=== PATIENT | male | born 1965 | race Caucasian/White ===

== ENCOUNTER 2016-11-12 20:52 | Inpatient (IN) | payer SELFPAY ==
[~2016-11-12] VITALS: Ht 177.8 cm; Wt 69.5 kg
[2016-11-12] VITALS (10 sets, daily range): BP systolic 87–102; BP diastolic 56–69; PULSE 59–77; RESP 14–24; TEMP 94–96; O2SAT 94–100
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
[2016-11-12 21:29] LABS: BLOOD GAS BASE EXCESS -4.5 mmol/L (-2-2); BLOOD GAS CARBOXYHEMOGLOBIN 6.6 % (0-4); BLOOD GAS HCO3 21 mmol/L (22-26); BLOOD GAS METHEMOGLOBIN 0.7 % (0-2); BLOOD GAS O2 HGB SATURATION 93 % (90-100); BLOOD GAS OXYGEN CONTENT 19.5 Vol % (12.0-20.0); BLOOD GAS PCO2 46 mmHg (38-42); BLOOD GAS PO2 544 mmHG (61-120); BLOOD GAS TOTAL HGB 13.9 G/DL (12.0-16.0); TEMP CORR TO 98.6
[2016-11-12 21:30] LABS: CRITICAL VALUE YES; OXYGEN DEVICE VENTILATOR
[2016-11-12 21:31] LABS: DRAW SITE RT FEMORAL; FIO2 100 %; NUMBER OF ARTERIAL PUNCTURES 1; STAT YES
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
[2016-11-12] MEDS ORDERED: SODIUM CHLOR 0.9% 1000 ML INJ 1,000 ML IV ONE ×3 (21:45→22:15)
[2016-11-12 21:47] LABS: AUTOMATED NEUTROPHIL # 4.9 TH/MM3 (1.8-7.7); BASOPHIL # 0.1 TH/MM3 (0-0.2); BASOPHIL % 0.8 % (0.0-2.0); EOSINOPHIL # 0.3 TH/MM3 (0-0.4); EOSINOPHIL % 3.1 % (0.0-4.0); HEMATOCRIT 42.1 % (39.0-51.0); HEMO FLAGS DIFF FINAL; LYMPH % 40.4 % (9.0-44.0); LYMPHOCYTE # 3.8 TH/MM3 (1.0-4.8); MEAN CORPUSCULAR HEMOGLOBIN 32.4 PG (27.0-34.0); MEAN CORPUSCULAR HGB CONC 32.8 % (32.0-36.0); MONO % 3.8 % (0.0-8.0); NEUT % 51.9 % (16.0-70.0); PLATELET COUNT 305 TH/MM3 (150-450); RED BLOOD COUNT 4.25 MIL/MM3 (4.50-5.90); RED CELL DISTRIBUTION WIDTH 13.6 % (11.6-17.2); WHITE BLOOD COUNT 9.4 TH/MM3 (4.0-11.0)
[2016-11-12 21:51] LABS: BLOOD, URINE TRACE (NEG); COMMENT (UR) CULT NOT INDICATED; CULTURE IF INDICATED CULT NOT INDICATED; GLUCOSE,URINE 1000 mg/dL (NEG); HYALINE CAST, URINE 4 /lpf (RARE); KETONE, URINE NEG (NEG); MUCUS URINE FEW /lpf (OCC); NITRITE,URINE NEG (NEG); PH, URINE 5.5 (5.0-8.5); SQUAMOUS EPITHELIAL CELL URINE 1 /hpf (0-5); URINE COLOR YELLOW (YELLW/STRAW)
[2016-11-12 22:02] LABS: AMPHETAMINE, URINE NEG (NEG); BARBITURATES, URINE NEG (NEG); COCAINE, URINE NEG (NEG)
[2016-11-12 22:12] LABS: ALT (GPT) 44 U/L (12-78)
[2016-11-12] MEDS ORDERED: NOREPINEPHRINE-DEXTROSE DRIP 250 ML IV SCH (22:15)
[2016-11-12 22:17] LABS: ACETAMINOPHEN LESS THAN 2.0 MCG/ML (10.0-30.0); ALKALINE PHOSPHATASE 80 U/L (45-117); ANION GAP 15 MEQ/L (5-15); AST (GOT) 103 U/L (15-37); BICARBONATE 18.9 MEQ/L (21.0-32.0); BLOOD UREA NITROGEN 16 MG/DL (7-18); CHLORIDE 101 MEQ/L (98-107); CREATINE KINASE 129 U/L (39-308); GLOMERULAR FILTRATION RATE 47 ML/MIN (>89); SODIUM (NA) 135 MEQ/L (136-145); TOTAL BILIRUBIN ADULT 0.3 MG/DL (0.2-1.0)
[2016-11-12 22:30] LABS: CKMB 0.9 NG/ML (0.5-3.6)
[2016-11-12] MEDS ORDERED: SODIUM CHLOR 0.9% 1000 ML INJ 1,000 ML IV SCH (22:44)
[2016-11-12] MEDS ORDERED: ONDANSETRON HCL 4 MG/2 ML VIAL IV PRN (22:45)
[2016-11-12] MEDS ORDERED: POTASSIUM PHOSPHATE MONOBASIC 500 MG TAB PO/TUBE PRN (22:45)
[2016-11-12] MEDS ORDERED: MAGNESIUM OXIDE 400 MG TAB PO PRN (22:45)
[2016-11-12] MEDS ORDERED: MAGNESIUM SULFATE INJ 2 GM in SODIUM CHLORIDE 0.9% INJ 96 ML IV PRN (22:45)
[2016-11-12] MEDS ORDERED: MAGNESIUM HYDROXIDE SUSP 30 ML CUP PO PRN (22:45)
[2016-11-12] MEDS ORDERED: POTASSIUM CHLOR 20 MEQ PREMIX 100 ML IV PRN ×2 (22:45)
[2016-11-12] MEDS ORDERED: POTASSIUM PHOSPHATE INJ 30 MMOL in SODIUM CHLOR 0.9% 250 ML INJ 250 ML IV PRN (22:45)
[2016-11-12] MEDS ORDERED: LACTULOSE SYRUP 20 GM/30 ML CUP PO PRN (22:45)
[2016-11-12] MEDS ORDERED: POTASSIUM CHLOR 40 MEQ PREMIX 100 ML IV PRN ×2 (22:45)
[2016-11-12] MEDS ORDERED: BISACODYL 10 MG SUPP RECTAL PRN (22:45)
[2016-11-12] MEDS ORDERED: RESP: ALBUTEROL 2.5 MG/IPRATROPIUM 0.5 MG NEB (PRN) INH (22:45)
[2016-11-12] MEDS ORDERED: MORPHINE SULFATE 4 MG/ML INJ IV PRN (22:45)
[2016-11-12] MEDS ORDERED: MISCELLANEOUS NURSING INFORMATION XX SCH (22:45)
[2016-11-12] MEDS ORDERED: SENNOSIDES 8.6 MG TAB PO PRN (22:45)
[2016-11-12] MEDS ORDERED: SODIUM PHOSPHATE INJ 30 MMOL in SODIUM CHLOR 0.9% 250 ML INJ 240 ML IV PRN (22:45)
[2016-11-12] MEDS ORDERED: CHLORHEXIDINE GLUCONATE 2 % 1 PACK (2 CLOTHS) TOP PRN (22:45)
[2016-11-12] MEDS ORDERED: ACETAMINOPHEN 325 MG TAB PO PRN (22:45)
[2016-11-12] MEDS ORDERED: POTASSIUM CHLORIDE 25 MEQ EFFERVESCENT TAB PO PRN (22:45)
[2016-11-12] MEDS ORDERED: MAGNESIUM SULFATE INJ 4 GM in SODIUM CHLORIDE 0.9% INJ 92 ML IV PRN (22:45)
[2016-11-12] MEDS ORDERED: POTASSIUM PHOSPHATE MONOBASIC 500 MG TAB PO PRN (22:45)
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
[2016-11-12] MEDS: PROPOFOL 1000 MG/100 ML INJ 100 ML IV SCH (23:27)
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
[2016-11-13] VITALS (19 sets, daily range): BP systolic 92–126; BP diastolic 52–74; PULSE 16–89; RESP 16–24; TEMP 98.2–99; O2SAT 92–100
[2016-11-13 00:11] LABS: MAGNESIUM 2.2 MG/DL (1.5-2.5)
[2016-11-13 00:36] LABS: APTT (PATIENT) 26.2 SEC (24.3-30.1); PROTHROMBIN TIME - PATIENT 10.5 SEC (9.8-11.6)
[2016-11-13] MEDS ORDERED: NOREPINEPHRINE-DEXTROSE DRIP 250 ML IV SCH (00:45)
[2016-11-13] MEDS ORDERED: TERBUTALINE INJ 1 MG/ML AMP SQ PRN (00:45)
[2016-11-13] MEDS ORDERED: fentaNYL DRIP 250 ML IV SCH (01:00)
[2016-11-13 03:33] LABS: BLOOD GAS BASE EXCESS -5.3 mmol/L (-2-2); BLOOD GAS HCO3 19 mmol/L (22-26); BLOOD GAS METHEMOGLOBIN 1.1 % (0-2); BLOOD GAS O2 HGB SATURATION 96 % (90-100); BLOOD GAS OXYGEN CONTENT 16.2 Vol % (12.0-20.0); BLOOD GAS PCO2 34 mmHg (38-42); BLOOD GAS PO2 199 mmHg (61-120); BLOOD GAS TOTAL HGB 11.8 G/DL (12.0-16.0); CRITICAL VALUE NO; DRAW SITE ART LINE; FIO2 50 %; OXYGEN DEVICE VENTILATOR; TEMP CORR TO 98.6; VENT SETTINGS PRVC/AC
[2016-11-13 03:34] LABS: STAT NO
[2016-11-13] MEDS: PROPOFOL 1000 MG/100 ML INJ 100 ML IV SCH (03:44)
[2016-11-13] MEDS: ENOXAPARIN SODIUM 40 MG/0.4 ML SYRINGE SQ SCH ×2 (03:51→23:13)
[2016-11-13 03:54] LABS: AUTOMATED NEUTROPHIL # 10.8 TH/MM3 (1.8-7.7); BASOPHIL # 0.1 TH/MM3 (0-0.2); BASOPHIL % 0.4 % (0.0-2.0); EOSINOPHIL # 0.2 TH/MM3 (0-0.4); EOSINOPHIL % 1.4 % (0.0-4.0); HEMATOCRIT 36.7 % (39.0-51.0); HEMO FLAGS DIFF FINAL; LYMPH % 20.3 % (9.0-44.0); MEAN CELL VOLUME 96.5 FL (80.0-100.0); MEAN CORPUSCULAR HEMOGLOBIN 31.7 PG (27.0-34.0); MEAN CORPUSCULAR HGB CONC 32.9 % (32.0-36.0); NEUT % 73.9 % (16.0-70.0); PLATELET COUNT 285 TH/MM3 (150-450); RED CELL DISTRIBUTION WIDTH 13.4 % (11.6-17.2); WHITE BLOOD COUNT 14.6 TH/MM3 (4.0-11.0)
[2016-11-13] MEDS: CHLORHEXIDINE GLUCONATE 2 % 1 PACK (2 CLOTHS) TOP SCH (04:00)
[2016-11-13 05:04] LABS: BLOOD GAS BASE EXCESS -5.1 mmol/L (-2-2); BLOOD GAS CARBOXYHEMOGLOBIN 1.8 % (0-4); BLOOD GAS HCO3 20 mmol/L (22-26); BLOOD GAS METHEMOGLOBIN 1.1 % (0-2); BLOOD GAS O2 HGB SATURATION 96 % (90-100); BLOOD GAS OXYGEN CONTENT 16.7 Vol % (12.0-20.0); BLOOD GAS PCO2 37 mmHg (38-42); BLOOD GAS PO2 160 mmHg (61-120); BLOOD GAS TOTAL HGB 12.1 G/DL (12.0-16.0); CRITICAL VALUE NO; OXYGEN DEVICE VENTILATOR; TEMP CORR TO 98.6
[2016-11-13 05:05] LABS: DRAW SITE ART LINE; FIO2 40 %; STAT NO; VENT SETTINGS PRVC/AC
[2016-11-13 05:25] LABS: BICARBONATE 22.3 MEQ/L (21.0-32.0); CALCIUM-PROTEIN CORRECTED 8.1 MG/DL (8.5-10.1); MAGNESIUM 1.7 MG/DL (1.5-2.5); TOTAL BILIRUBIN ADULT 0.5 MG/DL (0.2-1.0)
--- NOTE | 2016-11-13 05:37 | RADRPT ---
EXAM DATE/TIME: 11/13/2016 04:28 [facility] COMPARISON: CHEST SINGLE AP, November 12, 2016, 20:57. INDICATIONS : Shortness of breath, possible pulmonary disease. MEDICAL HISTORY : None. SURGICAL HISTORY : None. ENCOUNTER: Subsequent ACUITY: 2 days PAIN SCORE: Non-responsive. LOCATION: Bilateral chest FINDINGS: A single view of the chest demonstrates the lungs to be symmetrically aerated without evidence of mas s, infiltrate or effusion. The cardiomediastinal contours are unremarkable. Endotracheal tube uncha nged. Osseous structures are intact. CONCLUSION: No acute disease. Fady Griffin MD on November 13, 2016 at 5:35 Board Certified Radiologist. This report was verified electronically.
--- NOTE | 2016-11-13 05:51 | PD.PROCEDR ---
Procedure Note Procedure Note for 11/12/16: DX: Cardiac Arrest OP: Insertion Right Radial Arterial Line ([id number]) Procedure: Ruben test normal right hand. Right wrist supinated, prepped and draped. Right radial artery cannulated with 20 gauge needle and cannula advanced over needle to 3.5 cm. Good waveform observed. Dressing applied. Circulation to right hand intact after the procedure. Lee Ace MD Nov 13, 2016 05:51
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
[2016-11-13] MEDS: CHLORHEXIDINE 0.12% (ORAL KIT) 15 ML CUP MT SCH ×2 (08:00→23:13)
[2016-11-13] MEDS: DOCUSATE SODIUM 50 MG/SENNA 8.6 MG TAB PO SCH ×2 (09:00→23:13)
[2016-11-13] MEDS: PANTOPRAZOLE SODIUM 40 MG VIAL IV SCH (10:28)
--- NOTE | 2016-11-13 13:42 | EKG ---
Date Performed: 11/12/2016 Time Performed: 21:06:33 PTAGE: 89 years EKG: SINUS BRADYCARDIA MARKED LEFT AXIS DEVIATION PROLONGED QT INTERVAL ABNORMAL ECG NO PREVIOUS TRACING DOCTOR: Jhon Giraldo Interpretating Date/Time 11/13/2016 13:41:13
[2016-11-14] VITALS (18 sets, daily range): BP systolic 112–153; BP diastolic 63–79; PULSE 56–84; RESP 16–20; TEMP 98–99; O2SAT 94–98
[2016-11-14] MEDS: CHLORHEXIDINE GLUCONATE 2 % 1 PACK (2 CLOTHS) TOP SCH (04:00)
[2016-11-14] MEDS: PANTOPRAZOLE SODIUM 40 MG VIAL IV SCH (07:33)
[2016-11-14] MEDS: CHLORHEXIDINE 0.12% (ORAL KIT) 15 ML CUP MT SCH ×2 (08:00→21:31)
[2016-11-14] MEDS: DOCUSATE SODIUM 50 MG/SENNA 8.6 MG TAB PO SCH ×2 (09:00→21:00)
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
[2016-11-14 11:39] LABS: AUTOMATED NEUTROPHIL # 8.2 TH/MM3 (1.8-7.7); BASOPHIL % 0.4 % (0.0-2.0); EOSINOPHIL # 0.1 TH/MM3 (0-0.4); HEMATOCRIT 39.2 % (39.0-51.0); HEMO FLAGS DIFF FINAL; LYMPH % 19.5 % (9.0-44.0); LYMPHOCYTE # 2.2 TH/MM3 (1.0-4.8); MEAN CELL VOLUME 95.5 FL (80.0-100.0); MEAN CORPUSCULAR HEMOGLOBIN 31.7 PG (27.0-34.0); MEAN CORPUSCULAR HGB CONC 33.2 % (32.0-36.0); MONO % 5.4 % (0.0-8.0); NEUT % 73.7 % (16.0-70.0); PLATELET COUNT 232 TH/MM3 (150-450); RED BLOOD COUNT 4.11 MIL/MM3 (4.50-5.90); RED CELL DISTRIBUTION WIDTH 13.4 % (11.6-17.2); WHITE BLOOD COUNT 11.1 TH/MM3 (4.0-11.0)
[2016-11-14 12:04] LABS: ALKALINE PHOSPHATASE 56 U/L (45-117); ALT (GPT) 26 U/L (12-78); ANION GAP 7 MEQ/L (5-15); AST (GOT) 22 U/L (15-37); BICARBONATE 26.5 MEQ/L (21.0-32.0); BLOOD UREA NITROGEN 6 MG/DL (7-18); CHLORIDE 108 MEQ/L (98-107); GLOMERULAR FILTRATION RATE 126 ML/MIN (>89); POTASSIUM 3.6 MEQ/L (3.5-5.1); SODIUM (NA) 141 MEQ/L (136-145); TOTAL BILIRUBIN ADULT 0.9 MG/DL (0.2-1.0)
[2016-11-14 22:48] LABS: BICARBONATE 27.8 MEQ/L (21.0-32.0); POTASSIUM 3.4 MEQ/L (3.5-5.1)
[2016-11-14] MEDS: ENOXAPARIN SODIUM 40 MG/0.4 ML SYRINGE SQ SCH (22:59)
[2016-11-15] VITALS (7 sets, daily range): BP systolic 128–140; BP diastolic 75–82; PULSE 52–65; RESP 16–18; TEMP 97.8–98.3; O2SAT 92–97
[2016-11-15] MEDS: CHLORHEXIDINE GLUCONATE 2 % 1 PACK (2 CLOTHS) TOP SCH (04:00)
[2016-11-15 05:42] LABS: ALT (GPT) 21 U/L (12-78); ANION GAP 8 MEQ/L (5-15); AST (GOT) 16 U/L (15-37); BICARBONATE 26.2 MEQ/L (21.0-32.0); BLOOD UREA NITROGEN 6 MG/DL (7-18); CHLORIDE 108 MEQ/L (98-107); GLOMERULAR FILTRATION RATE 131 ML/MIN (>89); POTASSIUM 3.4 MEQ/L (3.5-5.1); SODIUM (NA) 142 MEQ/L (136-145)
[2016-11-15 05:43] LABS: ALKALINE PHOSPHATASE 54 U/L (45-117); TOTAL BILIRUBIN ADULT 0.7 MG/DL (0.2-1.0)
[2016-11-15 05:44] LABS: AUTOMATED NEUTROPHIL # 7.4 TH/MM3 (1.8-7.7); BASOPHIL % 0.4 % (0.0-2.0); EOSINOPHIL # 0.2 TH/MM3 (0-0.4); HEMATOCRIT 37.7 % (39.0-51.0); HEMO FLAGS DIFF FINAL; LYMPH % 18.6 % (9.0-44.0); LYMPHOCYTE # 1.9 TH/MM3 (1.0-4.8); MEAN CELL VOLUME 95.3 FL (80.0-100.0); MEAN CORPUSCULAR HEMOGLOBIN 32.8 PG (27.0-34.0); MEAN CORPUSCULAR HGB CONC 34.4 % (32.0-36.0); MONO % 5.8 % (0.0-8.0); NEUT % 73.2 % (16.0-70.0); PLATELET COUNT 248 TH/MM3 (150-450); RED BLOOD COUNT 3.96 MIL/MM3 (4.50-5.90); RED CELL DISTRIBUTION WIDTH 13.2 % (11.6-17.2); WHITE BLOOD COUNT 10.2 TH/MM3 (4.0-11.0)
[2016-11-15] MEDS: CHLORHEXIDINE 0.12% (ORAL KIT) 15 ML CUP MT SCH (08:00)
[2016-11-15] MEDS ORDERED: POTASSIUM CHLORIDE 10 MEQ CONTROLLED RELEASE TAB PO ONE (08:15)
[2016-11-15] MEDS: DOCUSATE SODIUM 50 MG/SENNA 8.6 MG TAB PO SCH (08:16)
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
[2016-11-15] MEDS ORDERED: POTA-163 PO (10:07)
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
== END 2016-11-15 10:50 | disposition home or self-care (01) | DRG 208 ==
LOC: NEPC 20:52 → EDBD 22:35 → NEDA 22:35 → HIMN 23:30
PROVIDERS: ADMIT Internal Medicine; ATTEND Internal Medicine
PROC: 5A1935Z Respiratory Ventilation, Less than 24 Consecutive Hours (ICD-10-PCS; principal; 2016-11-12)
PROC: 03HB33Z Insertion of Infusion Device into Right Radial Artery, Percutaneous Approach (ICD-10-PCS; 2016-11-13)
DX: J96.00 Acute respiratory failure, unspecified whether with hypoxia or hypercapnia (principal); I46.9 Cardiac arrest, cause unspecified; G93.40 Encephalopathy, unspecified; T75.1XXA Unspecified effects of drowning and nonfatal submersion, initial encounter; W17.4XXA Fall from dock, initial encounter; T68.XXXA Hypothermia, initial encounter; I95.9 Hypotension, unspecified; Z72.0 Tobacco use; E87.6 Hypokalemia
CPT/HCPCS: 36556; 36600; 70450; 71010; 72125; 80048; 80053; 80307; 81001; 82550; 82552; 82805; 82948; 83605; 83690; 83735; 83880; 84100; 84484; 85025; 85610; 85730; 87641; 93005; 94002; 94003; 99291; C9113; J1650; J7030; J7050